=== PATIENT | female | born 1960 | race Caucasian/White ===

== ENCOUNTER 2018-10-25 09:36 | Inpatient (IN) ==
--- NOTE | 2018-10-08 09:39 | PAT Medication Instructions ---
Medication Instructions Date of Service October 08, 2018 Home Medications buspirone 10 mg PO QPM fluoxetine 40 mg PO QAM lisinopril 10 mg PO QAM meloxicam 15 mg PO QAM ASK your surgeon for instructions meloxicam 15 mg PO QAM DO NOT take the morning of surgery lisinopril 10 mg PO QAM Take morning of surgery With a small sip of water, OTHERWISE NOTHING TO EAT OR DRINK AFTER MIDNIGHT: fluoxetine 40 mg PO QAM Take evening before surgery buspirone 10 mg PO QPM Other Notes If you have any questions please call us at [phone] or [phone] or [phone] or [phone]
--- NOTE | 2018-10-08 11:15 | Anesthesiology Consultation ---
Date of Service October 08, 2018 Assessment & Plan (1) Encounter for pre-operative examination: Chart Review Chart Review: Acceptable Risk for Surgery and Patient seen in Pre Admission Testing Consults Requested none Teaching & Discussion Pre-Anesthesia Teaching/Discussion Notes: Instructed NPO after midnight before surgery, except medications with 15 cc of water. Medication instructions provided according to the PAT guidelines. History Surgery Operation Date: 10/25/18 11:25 Proposed Procedures p L4-L5 Decompression and Fusion - Armand Capone DO Height/Weight Height: 5 ft 3.5 in Weight: 111.5 kg Allergies Allergy/AdvReac Type Severity Reaction Status Date / Time No Known Allergies Allergy Verified 10/05/18 09:00 Medications Home Medications Medication Instructions Recorded Confirmed Last Taken buspirone 10 mg PO QPM 10/05/18 10/05/18 Unknown fluoxetine 40 mg PO QAM 10/05/18 10/05/18 Unknown lisinopril 10 mg PO QAM 10/05/18 10/05/18 Unknown meloxicam 15 mg PO QAM 10/05/18 10/05/18 Unknown Past Medical History Medical History Chronic back pain Depression Fatty liver Fecal urgency History of anesthesia reaction BRADYCARDIA Hyperlipidemia Hypertension Intermittent palpitations Osteoarthritis Snores Spinal stenosis Urinary urgency Past Surgical History Surgical History History of cardiac cath 2016 - [facility] - SOB, CP - NO STENTS/ANGIOPLASTY History of colonoscopy History of hysterectomy with oophorectomy History of sinus surgery History of tooth extraction Past Anesthesia History No Hx of Anesthesia Complications (see below, otherwise no issues) and No Family Hx of Anesthesia Complications H/O Bradycardia during anesthesia. History of PONV No Motion Sickness Screening History of Motion Sickness: Yes Social History Smoking Status: Never smoker Do You Dip or Chew Tobacco: No Hx Alcohol Use: No Hx Substance Use: No Exercise / Class Metabolic Activity II 4-5 Yardwork/Stairs/Walk up hill (Very limited due to back pain. Able to climb FOS. 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 Does get mild SOB by the top. ) Review of Systems Patient denies chest pain, shortness of breath, dyspnea on exertion, reflux, cough, wheezing +joint pain (back, knees) +heart palpitations (when having anxiety problems) Physical Exam Vital Signs BP: 159/85 P: 89 R: 16 T: 98.6 SPO2: 96% on RA Constitutional + obese ENMT Thyromental Distance: < 3.5 Finger Breadths (3) Mallampati Class: I Neck normal visual inspection and trachea midline Respiratory normal respiratory effort Auscultation: lungs clear to auscultation bilaterally Cardiovascular Rate/Rhythm: regular rate and regular rhythm Heart Sounds: no murmur Vessels: no carotid bruit Neurologic moves all extremities Psychiatric Orientation: alert and oriented x 3 Flat affect Testing Electrocardiogram Date: 08/27/18 Findings: + NSR @ (77) Possible left atrial enlargement Chest X-Ray Date: 10/08/18 Findings: + NAD Stress Test Date: 08/27/16 Type: nuclear (SESTAMISI) Resting EF: 75% Resting LV Function: normal Stress EKG was negative for myocardial ischemia at 99% of the MPHR. Moderate level of exercise achieved. Chest burning reproduced with exercise. Laboratory Results 10/08/18 10:54 10/08/18 10:54 Blood Type O Negative 10/08/18 10:54 Antibody Screen NEGATIVE 10/08/18 10:54 PT 9.9 Seconds (9.0-12.0) 10/08/18 10:54 INR 1.0 (0.9-1.1) 10/08/18 10:54 APTT 27.2 Seconds (21.0-31.0) 10/08/18 10:54 Urine Color Yellow 10/08/18 10:54 Urine Appearance Clear (Clear) 10/08/18 10:54 Urine pH 7.5 (4.5-7.5) 10/08/18 10:54 Ur Specific [place] 1.024 (1.000-1.030) 10/08/18 10:54 Urine Protein Negative (Negative) 10/08/18 10:54 Urine Glucose (UA) Negative (Negative) 10/08/18 10:54 Urine Ketones Negative (Negative) 10/08/18 10:54 Urine Nitrite Negative (Negative) 10/08/18 10:54 Ur Leukocyte Esterase Negative (Negative) 10/08/18 10:54 Urine WBC (Auto) 1-5 /hpf (0-5) 10/08/18 10:54 Urine RBC (Auto) 5-10 /hpf (0-4) H 10/08/18 10:54 U Hyaline Cast (Auto) 0 /lpf (0-5) 10/08/18 10:54 U Epithel Cells (Auto) 5-10 /lpf (0-5) H 10/08/18 10:54 Urine Bacteria (Auto) Negative (Negative) 10/08/18 10:54
[2018-10-08 11:55] LABS: Basophils # (auto) 0.03 K/uL (0-0.2); Basophils % (auto) 0.6 %; Eosinophils # (auto) 0.23 K/uL (0-0.5); Eosinophils % (auto) 4.4 %; Hematocrit (blood only) 42.3 % (37-47); Hemoglobin 13.8 g/dL (12.0-16.0); Immature Granulocytes # (auto) 0.01 K/uL (0.00-0.02); Immature Granulocytes % (auto) 0.2 %; Lymphocytes # (auto) 1.92 K/uL (1.2-3.4); Lymphocytes % (auto) 36.7 %; Mean Corpuscular Hgb Conc 32.6 g/dL (32-36); Mean Platelet Volume 9.7 fL (7.4-10.4); Monocytes % (auto) 7.6 %; Neutrophils # (auto) 2.64 K/uL (1.4-6.5); Neutrophils % (auto) 50.5 %; Platelet Count 269 K/uL (130-400); RDW Coefficient of Variation 14.6 % (11.5-14.5); RDW Standard Deviation 48.9 fL (36.4-46.3); Red Blood Count 4.65 M/uL (4.2-5.4); White Blood Count 5.23 K/uL (4.8-10.8)
--- NOTE | 2018-10-08 11:58 | XRay Report ---
XR chest Pre-admission PA/Lat CLINICAL HISTORY: pat preoperative COMPARISON STUDY: No previous studies for comparison. FINDINGS: The bones soft tissues and hemidiaphragms are normal. The cardiomediastinal silhouette is n ormal. The lungs are clear. The pulmonary vasculature is normal. IMPRESSION: Negative chest. The above report was generated using voice recognition software. It may contain grammatical, syntax or spelling errors. Electronically signed by: Delio Hubbard M.D. 10/08/2018 11:57 AM
[2018-10-08 12:03] LABS: Appearance Urine Clear (Clear); Bacteria Urine Automated Negative (Negative); Bilirubin Urine Negative (Negative); Blood Urine Trace (Negative); Cast Urine Automated 0 /lpf (0-5); Color Urine Yellow; Glucose Urine UA Negative (Negative); Ketones Urine Negative (Negative); Leukocyte Esterase Urine Negative (Negative); Nitrite Urine Negative (Negative); Protein Urine Negative (Negative); Specific Gravity Urine 1.024 (1.000-1.030); Urobilinogen Urine Negative (Negative); pH Urine 7.5 (4.5-7.5)
[2018-10-08 12:05] LABS: BUN Creatinine Ratio 18.8 (10-20); Calcium 8.7 mg/dl (8.5-10.1); Creatinine Clr Calc Pharmacy 96.5 ml/min; Est GFR (African American) 99.5; Est GFR (Non-African American) 85.9; Potassium 4.2 mmol/L (3.5-5.1)
[2018-10-08 12:16] LABS: Partial Thromboplastin Time 27.2 Seconds (21.0-31.0); Prothrombin Time 9.9 Seconds (9.0-12.0)
[~2018-10-25 09:36] MED LIST: ACETAMINOPHEN 500 MG TAB PO SCH; CEFAZOLIN 2000MG 2,000 MG/15 ML SYR IV SCH; CeleBREX 200 MG CAP PO SCH; DEXAMETHASONE SOD INJ 4 MG/ML VIAL ONE; GABAPENTIN 300 MG x 3 PO SCH; GLYCOPYRROLATE 0.2 MG/ML VIAL ONE; HYDROmorphone INJ 2 MG/ML SYR/VIAL ONE; LIDOCAINE HCL 2% 2 ML VIAL/AMP(20MG/ML) INFIL ONE; LR 15ML/HR IV SCH; MIDAZOLAM HCL 1 MG/ML 2ML VIAL ONE; NEOSTIGMINE METHYLSULFATE 1 MG/ML 10ML VIAL ONE; ONDANSETRON INJ 2 MG/ML 2 ML VIAL ONE; PROPOFOL IV EMULSION 10 MG/ML 20 ML VIAL IV ONE; ROCURONIUM BROMIDE 10 MG/ML 5 ML VIAL ONE; fentaNYL citrate 100 MCG/2 ML VIAL ONE
[2018-10-25] MEDS ORDERED: HYDROmorphone INJ 2 MG/ML SYR/VIAL ONE (11:33)
[2018-10-25] MEDS ORDERED: fentaNYL citrate 100 MCG/2 ML VIAL ONE ×4 (11:33→13:47)
[2018-10-25] MEDS ORDERED: HYDROmorphone INJ 1 MG/ML SYRINGE IV PRN (11:34)
[2018-10-25] MEDS ORDERED: ATROPINE SULFATE 0.1 MG/ML 10ML SYR IV PRN (11:34)
[2018-10-25] MEDS ORDERED: ONDANSETRON INJ 2 MG/ML 2 ML VIAL IV PRN ×2 (11:34→15:25)
--- NOTE | 2018-10-25 11:49 | History & Physical Bridge Note ---
Date of Service October 25, 2018 History & Physical Bridge Note I have examined the patient, reviewed the History & Physical and in the interval since the performance of the History & Physical I have noted the following changes of clinical significance: no changes noted
--- NOTE | 2018-10-25 11:53 | History & Physical Report ---
Date of Service October 25, 2018 Assessment & Plan (1) Neurogenic claudication due to lumbar spinal stenosis: L4-5 decompression and fusion Present on Admission?: Yes History of Present Illness Chief Complaint: Back and leg pain Primary Care Provider: Deandra Damon This is a 58-year-old female presents with chronic persistent back and leg pain failing extensive course of nonoperative care is here for surgical intervention. Allergies Allergy/AdvReac Type Severity Reaction Status Date / Time No Known Allergies Allergy Verified 10/25/18 09:48 Home Medications Home Medications Medication Instructions Recorded Confirmed Type buspirone 10 mg PO QPM 10/05/18 10/25/18 History fluoxetine 40 mg PO QAM 10/05/18 10/25/18 History lisinopril 10 mg PO QAM 10/05/18 10/25/18 History meloxicam 15 mg PO QAM 10/05/18 10/25/18 History Past Med/Surg History Medical History Chronic back pain Depression Fatty liver Fecal urgency History of anesthesia reaction BRADYCARDIA Hyperlipidemia Hypertension Intermittent palpitations Osteoarthritis Snores Spinal stenosis Urinary urgency Surgical History History of cardiac cath 2017 - [facility] - SOB, CP - NO STENTS/ANGIOPLASTY History of colonoscopy History of hysterectomy with oophorectomy History of sinus surgery History of tooth extraction Social History Preferred Language: Kittitian Communication Ability: Effective Temperer Required: No Beliefs That Will Affect Care: None Current Living Situation: Family Current Living Situation Comment: DTR AND GRANDCHILDREN LIVE WITH PT Other Information That Helps Us Care for You: No Feels Safe at Home: Yes Safety Concerns: Feels Safe At This Time Smoking Status: Never smoker Hx Alcohol Use: No Hx Substance Use: No Physical Exam Vital Signs (Past 24 Hours): Last Vital Signs Temp 36.7 C 10/25/18 10:02 Pulse 75 10/25/18 10:02 Resp 20 10/25/18 10:02 BP 153/71 H 10/25/18 10:02 Pulse Ox 96 10/25/18 10:02 Results & Data Medications Administered Acetaminophen (Tylenol) 1,000 mg PO PREOP ALEX Stop: 10/25/18 18:00 Last Admin: 10/25/18 10:19 Dose: 1,000 mg Documented by: [id number] Celecoxib (Celebrex) 200 mg PO PREOP ALEX Stop: 10/25/18 18:00 Last Admin: 10/25/18 10:19 Dose: 200 mg Documented by: [id number] Gabapentin (Neurontin) 900 mg PO PREOP ALEX Stop: 10/25/18 18:00 Last Admin: 10/25/18 10:18 Dose: 900 mg Documented by: [id number] Lactated Ringer's (Lr) 1,000 mls @ 15 mls/hr IV .Q24H ALEX Stop: 10/26/18 05:59 Last Admin: 10/25/18 10:10 Dose: 15 mls/hr Documented by: [id number]
[2018-10-25] MEDS ORDERED: BACITRACIN INJ 50,000 UNIT VIAL ONE (12:03)
[2018-10-25] MEDS ORDERED: BUPIVACAINE/EPINEPHRINE 0.5% MPF 1:200,000 30 ML VIAL ONE (12:03)
[2018-10-25] MEDS ORDERED: LARYING-O-JET KIT (LTA) ONE (12:52)
[2018-10-25] MEDS ORDERED: ePHEDrine sulfate 50 MG/ML SYR ONE (12:52)
[2018-10-25] MEDS ORDERED: LIDOCAINE HCL 2% 2 ML VIAL/AMP(20MG/ML) INFIL ONE (12:53)
[2018-10-25] MEDS ORDERED: GLYCOPYRROLATE 0.2 MG/ML VIAL ONE (12:53)
[2018-10-25] MEDS ORDERED: PROPOFOL IV EMULSION 10 MG/ML 20 ML VIAL IV ONE (12:53)
[2018-10-25] MEDS ORDERED: ONDANSETRON INJ 2 MG/ML 2 ML VIAL ONE (12:53)
[2018-10-25] MEDS ORDERED: DEXAMETHASONE SOD INJ 4 MG/ML VIAL ONE (12:53)
[2018-10-25] MEDS ORDERED: ePHEDrine sulfate 50 MG/ML AMP ONE (13:25)
[2018-10-25] MEDS ORDERED: FLOSEAL HEMOSTATIC MATRIX 10ML TOP ONE (13:29)
--- NOTE | 2018-10-25 13:50 | Fluoroscopy Report ---
FL lumbar spine 2-3V CLINICAL HISTORY: L4-L5 DECOMPRESSION AND FUSION POSSIBLE INTERBODY COMPARISON STUDY: None FLUOROSCOPY TIME: 14 seconds NUMBER OF FLUOROSCOPIC IMAGES: 3 FINDINGS: L4-L5 laminectomy and fusion IMPRESSION: L4-L5 laminectomy and fusion. Disc spacer placement. Alignment is anatomic. The above report was generated using voice recognition software. It may contain grammatical, syntax or spelling errors. Electronically signed by: Delio Hubbard M.D. 10/25/2018 1:48 PM
--- NOTE | 2018-10-25 13:53 | Operative Report ---
Post Operative Report Pre & Post Diagnosis Operation Date: 10/25/18 11:25 Pre-Op Diagnosis: Lumbar spinal stenosis with neurogenic claudication Post-Op Diagnosis: Lumbar spinal stenosis with neurogenic claudication Procedure Operation Date: 10/25/18 11:25 Actual Procedures 1. Lumbar decompression bilateral medial vasectomies foraminotomies L3-4 L4-5. #2 posterior spinal fusion L4-5 #3 please posterior instrumentation L4-5 per #4 interbody fusion L4-5 per #5 placement of titanium 12 x 22 mm cage at L4-5 per #6 placement of local autograft in the posterior lateral gutters. #7 placement Feese collagen sponge mass graft in the posterior lateral gutters and ostial amp in the interbody space. Surgeon Armand Capone, Plant Electrician None Estimated Blood Loss 125 Findings Consistent with Post-Op Diagnosis Specimens None Description of Procedure Patient was met with preoperatively case discussed all questions addressed. After informed consent obtained patient was taken to the operative suite underwent intubation and placed in a prone position on the Michael table on top of the Mor frame. All bony prominences well-padded eyes inspected to ensure no external pressure placed upon the. This point the lumbar spine was prepped and draped in a sterile fashion. Sharp dissection with the assistance of Bovie cautery was performed down to and exposing the lamina and transverse processes of L4 and L5 bilaterally. From a caudal cephalad fashion complete laminectomy of L4 partial laminectomy of L3 was performed including bilateral medial fac etectomies and foraminotomies addressing severe spinal stenosis. Pedicle screws were then placed in all 4 and L5 bilaterally with assistance of fluoroscopy the purposes clayton placed. Through a transforaminal approach on the right complete discectomy of L4-5 was performed in plate curetted to subcortical B bone and a 12 x 22 mm titanium cage filled with osteo-amp bone graft tapped into position. The rods then compressed locked into final position bilaterally. Transverse processes of L4 and L5 bur to subcortical B bone. Infuse collagen sponge master graft local autograft placed in the posterior lateral gutters. 15 round PATTI drain inserted. The incision was then closed with 1 Vicryl in the fascia 2-0 Vicryl subcutaneous layer and 4-0 Monocryl for final skin closure. Steri-Strip sterile dressings placed. Patient will continue to PACU stable disc. I attest to the content of the Intraoperative Record and any orders documented therein. Any exceptions are noted below.
[2018-10-25] MEDS ORDERED: ONDANSETRON 4 MG TAB PO PRN (15:25)
[2018-10-25] MEDS ORDERED: BISACODYL 10 MG SUPP PR PRN (15:25)
[2018-10-25] MEDS ORDERED: METOCLOPRAMIDE HCL INJ 5 MG/ML 2 ML VIAL IV PRN (15:25)
[2018-10-25] MEDS ORDERED: MAGNESIUM HYDROXIDE SUSP 30 ML UDC PO PRN (15:25)
[2018-10-25] MEDS ORDERED: HYDROmorphone INJ 0.5 MG/0.5 ML SYR IV PRN (15:25)
[2018-10-25] MEDS ORDERED: PROMETHAZINE HCL 12.5 MG in SODIUM CHLORIDE 0.9% 50 ML IV PRN (15:25)
[2018-10-25] MEDS ORDERED: ACETAMINOPHEN 1,000 MG/100 ML VIAL IV PRN (15:25)
[2018-10-25] MEDS ORDERED: DO NOT ADMINISTER FLU VACCINE PRN (15:25)
[2018-10-25] MEDS ORDERED: LORazepam 0.5 MG/1 ML VIAL IV PRN (15:25)
[2018-10-25] MEDS ORDERED: ACETAMINOPHEN 500 MG TAB PO PRN (15:25)
[2018-10-25] MEDS ORDERED: DO NOT ADMINISTER PNEUMOCOCCAL VACCINE PRN (15:25)
[2018-10-25] MEDS ORDERED: ALUMINUM/MAGNESIUM SUSP 30 ML UDC PO PRN (15:25)
[2018-10-25] MEDS ORDERED: FAMOTIDINE 20 MG TAB PO PRN (15:25)
[2018-10-25] MEDS ORDERED: SOD PHOSPHATE/SOD BIPHOSPHATE ENEMA 132 ML BTL PR PRN (15:25)
--- NOTE | 2018-10-25 15:25 | Anesthesiology Progress Note ---
Date of Service October 25, 2018 Anesthesia Post Procedure Vital Signs Vital Signs: Temp Pulse Pulse Resp BP BP Pulse Ox 10/25/18 15:10 57 L 24 129/78 93 10/25/18 15:05 57 L 15 121/75 96 10/25/18 15:00 54 L 18 135/84 94 10/25/18 14:55 57 L 18 132/86 91 10/25/18 14:50 56 L 19 129/90 92 10/25/18 14:45 58 L 19 130/79 94 10/25/18 14:40 57 L 15 137/84 95 10/25/18 14:35 57 L 17 134/85 94 10/25/18 14:30 60 20 94 10/25/18 14:25 61 18 146/88 H 97 10/25/18 14:20 36.5 C 63 60 19 146/88 H 146/88 H 98 10/25/18 14:15 63 19 143/88 H 99 10/25/18 14:10 63 17 155/87 H 97 10/25/18 14:05 66 16 158/92 H 99 10/25/18 14:02 68 15 98 10/25/18 14:00 71 16 151/91 H 98 10/25/18 13:59 36.3 C L 82 12 159/88 H 87 L 10/25/18 10:02 36.7 C 75 20 153/71 H 96 Notes Mental Status: alert / awake / arousable Patient Amnestic to Procedure: Yes Nausea / Vomiting: adequately controlled Pain: adequately controlled Airway Patency, RR, SpO2: stable & adequate BP & HR: stable & adequate Hydration State: stable & adequate Anesthetic Complications: no major complications apparent
[2018-10-25] MEDS: LACTATED RINGER'S 1,000 ML IV SCH ×2 (17:11→23:53)
[2018-10-25] MEDS: KETOROLAC TROMETHAMINE 15 MG/ML VIAL IV SCH ×2 (17:12→22:18)
[2018-10-25] MEDS: CLINDAMYCIN 600 MG in DEXTROSE 5% 50 ML IV SCH (19:55)
[2018-10-25] MEDS: DOCUSATE SODIUM/SENNA 50/8.6MG TAB PO SCH (21:18)
[2018-10-26] MEDS: CLINDAMYCIN 600 MG in DEXTROSE 5% 50 ML IV SCH (03:26)
[2018-10-26] MEDS: LORazepam 0.5 MG TAB PO PRN (03:26)
[2018-10-26] MEDS: KETOROLAC TROMETHAMINE 15 MG/ML VIAL IV SCH ×2 (03:27→09:41)
[2018-10-26] MEDS: POLYETHYLENE (MIRALAX) 17 GM PACK PO SCH ×4 (06:05→23:17)
[2018-10-26 06:15] LABS: Basophils # (auto) 0.04 K/uL (0-0.2); Basophils % (auto) 0.5 %; Eosinophils % (auto) 2.5 %; Hematocrit (blood only) 37.3 % (37-47); Hemoglobin 12.2 g/dL (12.0-16.0); Immature Granulocytes # (auto) 0.01 K/uL (0.00-0.02); Immature Granulocytes % (auto) 0.1 %; Lymphocytes # (auto) 1.89 K/uL (1.2-3.4); Lymphocytes % (auto) 23.8 %; Mean Corpuscular Hgb Conc 32.7 g/dL (32-36); Mean Corpuscular Volume 91.9 fL (80-100); Mean Platelet Volume 9.1 fL (7.4-10.4); Monocytes # (auto) 0.75 K/uL (0.11-0.59); Monocytes % (auto) 9.4 %; Neutrophils # (auto) 5.06 K/uL (1.4-6.5); Neutrophils % (auto) 63.7 %; Platelet Count 224 K/uL (130-400); RDW Coefficient of Variation 14.8 % (11.5-14.5); RDW Standard Deviation 49.9 fL (36.4-46.3); Red Blood Count 4.06 M/uL (4.2-5.4); White Blood Count 7.95 K/uL (4.8-10.8)
[2018-10-26 06:43] LABS: BUN Creatinine Ratio 14.8 (10-20); Calcium 7.9 mg/dl (8.5-10.1); Creatinine Clr Calc Pharmacy 78.4 ml/min; Est GFR (Non-African American) 67.3; Potassium 4.2 mmol/L (3.5-5.1)
[2018-10-26] MEDS: TRAMADOL HCL 50 MG TABLET PO PRN ×2 (07:32→14:37)
[2018-10-26] MEDS: LISINOPRIL 10 MG TAB PO SCH (08:39)
[2018-10-26] MEDS: FLUOXETINE HCL 20 MG CAP PO SCH (08:41)
--- NOTE | 2018-10-26 09:37 | Anesthesiology Progress Note ---
Date of Service October 26, 2018 Anesthesia Post Procedure Vital Signs Vital Signs: Temp Pulse Pulse Resp BP BP Pulse Ox 10/26/18 07:13 36.7 C 68 18 136/82 94 10/26/18 03:20 36.7 C 65 14 133/81 94 10/25/18 23:15 36.7 C 69 16 116/72 93 10/25/18 19:05 36.8 C 73 20 139/79 93 10/25/18 18:31 18 113/64 84 L 10/25/18 17:28 73 16 121/77 96 10/25/18 16:30 71 18 139/78 97 10/25/18 16:07 36.4 C L 64 16 133/80 95 10/25/18 15:25 36.5 C 57 L 20 127/82 94 10/25/18 15:10 57 L 24 129/78 93 10/25/18 15:05 57 L 15 121/75 96 10/25/18 15:00 54 L 18 135/84 94 10/25/18 14:55 57 L 18 132/86 91 10/25/18 14:50 56 L 19 129/90 92 10/25/18 14:45 58 L 19 130/79 94 10/25/18 14:40 57 L 15 137/84 95 10/25/18 14:35 57 L 17 134/85 94 10/25/18 14:30 60 20 94 10/25/18 14:25 61 18 146/88 H 97 10/25/18 14:20 36.5 C 63 60 19 146/88 H 146/88 H 98 10/25/18 14:15 63 19 143/88 H 99 10/25/18 14:10 63 17 155/87 H 97 10/25/18 14:05 66 16 158/92 H 99 10/25/18 14:02 68 15 98 10/25/18 14:00 71 16 151/91 H 98 10/25/18 13:59 36.3 C L 82 12 159/88 H 87 L 10/25/18 10:02 36.7 C 75 20 153/71 H 96 Pain Intensity Back: Pain Intensity: 5 Notes Mental Status: alert / awake / arousable and participated in evaluation Patient Amnestic to Procedure: Yes Nausea / Vomiting: see Notes below Pain: adequately controlled Airway Patency, RR, SpO2: stable & adequate BP & HR: stable & adequate Hydration State: stable & adequate Anesthetic Complications: no major complications apparent and Pt Satisfied with anesthetic care
[2018-10-26] MEDS ORDERED: COUGH DROP (SUGAR FREE) LOZ 24 LOZ/1 BOX BUCCAL ONE (11:08)
[2018-10-26] MEDS ORDERED: COUGH DROP (SUGAR FREE) LOZ 24 LOZ/1 BOX BUCCAL PRN (11:09)
--- NOTE | 2018-10-26 11:44 | Orthopedic Progress Note ---
Date of Service October 26, 2018 Assessment & Plan (1) Neurogenic claudication due to lumbar spinal stenosis: Patient is status post lumbar decompression fusion doing nicely. She is marked improvement of her leg function. We will assess her progress today and possible discharge home tomorrow. Present on Admission?: Yes Subjective Patient's back pain is controlled leg symptoms markedly improved. Physical Exam Vital Signs (Past 24 Hours): Last Vital Signs Temp 36.8 C 10/26/18 11:03 Pulse 85 10/26/18 11:03 Resp 18 10/26/18 11:03 BP 150/85 H 10/26/18 11:03 Pulse Ox 93 10/26/18 11:03 Physical Exam: On physical exam she is ambulate in halls has good strength testing is quite comfortable.
[2018-10-26] MEDS: OXYCODONE HCL IR 5 MG TAB (IMMEDIATE RELEASE) PO PRN ×2 (15:37→19:17)
[2018-10-26] MEDS: DOCUSATE SODIUM/SENNA 50/8.6MG TAB PO SCH (20:50)
[2018-10-27] MEDS: OXYCODONE HCL IR 5 MG TAB (IMMEDIATE RELEASE) PO PRN ×2 (04:12→10:27)
[2018-10-27] MEDS: POLYETHYLENE (MIRALAX) 17 GM PACK PO SCH ×4 (06:14→23:45)
--- NOTE | 2018-10-27 08:09 | Orthopedic Progress Note ---
Date of Service October 27, 2018 Assessment & Plan (1) Neurogenic claudication due to lumbar spinal stenosis: Today we will maintain physical therapy monitor PATTI output anticipate discharge home tomorrow. Present on Admission?: Yes Subjective Patient's back pain is much more significant today. Again her leg symptoms are markedly improved. Physical Exam Vital Signs (Past 24 Hours): Last Vital Signs Temp 36.8 C 10/27/18 07:27 Pulse 74 10/27/18 07:27 Resp 18 10/27/18 07:27 BP 150/87 H 10/27/18 07:27 Pulse Ox 93 10/27/18 07:27 Physical Exam: On exam she is obviously more uncomfortable today. She does however exhibit excellent strength testing lower extremities. She is been ambulating well.
[2018-10-27] MEDS: FLUOXETINE HCL 20 MG CAP PO SCH (08:21)
[2018-10-27] MEDS: LISINOPRIL 10 MG TAB PO SCH (08:21)
[2018-10-27] MEDS: DEXAMETHASONE SOD PHOSPHATE 8 MG in SYRINGE 0 ML IV SCH ×2 (08:21→20:04)
[2018-10-27] MEDS: TRAMADOL HCL 50 MG TABLET PO PRN (08:23)
[2018-10-27] MEDS: KETOROLAC 30 MG/ML VIAL IV PRN (08:24)
[2018-10-27] MEDS: DOCUSATE SODIUM/SENNA 50/8.6MG TAB PO SCH (20:04)
[2018-10-28] MEDS: LORazepam 0.5 MG TAB PO PRN (03:52)
[2018-10-28] MEDS: OXYCODONE HCL IR 5 MG TAB (IMMEDIATE RELEASE) PO PRN ×2 (06:23→11:00)
[2018-10-28] MEDS: POLYETHYLENE (MIRALAX) 17 GM PACK PO SCH (06:23)
[2018-10-28] MEDS: FLUOXETINE HCL 20 MG CAP PO SCH (08:28)
[2018-10-28] MEDS: DEXAMETHASONE SOD PHOSPHATE 8 MG in SYRINGE 0 ML IV SCH (08:28)
[2018-10-28] MEDS: LISINOPRIL 10 MG TAB PO SCH (08:28)
[2018-10-28] MEDS: KETOROLAC 30 MG/ML VIAL IV PRN (08:32)
--- NOTE | 2018-10-29 09:05 | Discharge Summary ---
Date of Service November 10, 2018 Admission HPI Per Admitting Provider This is a 58-year-old female presents with chronic persistent back and leg pain failing extensive course of nonoperative care is here for surgical intervention. Discharge Data Consultations 10/25/18 15:25 Consult Case Management - Discharge Planning Routine Procedures Performed Operation Date: 10/25/18 11:25 Actual Procedures p L4-L5 Decompression and Interbody Fusion(Not Applicable) - Armand Capone, DO
--- NOTE | 2018-10-29 12:27 | Coding Query ---
BMI To promote full compliance with coding requirements relating to patient care, physician participation is requested in all cases of computerized machine fabric cutter uncertainty. Please assist us with the question(s) below: Please place an X within the parenthesis (x). If other, please document: BMI 42.4 was documented in this record for this patient. If the BMI is significant, please check the box that provides a more specific associated diagnosis: ( ) Overweight/Obese ( ) Obesity (x ) Morbid obesity ( ) Obesity Hypoventilation Syndrome (OHS) ( ) Heathy weight, not significant ( ) Underweight/Thin ( ) Other, please specify Thank you Jaqui COSTA
--- NOTE | 2018-11-08 12:27 | Discharge Summary ---
Date of Service November 08, 2018 Admission HPI Per Admitting Provider This is a 58-year-old female presents with chronic persistent back and leg pain failing extensive course of nonoperative care is here for surgical intervention. Principal Diagnosis Lumbar spinal stenosis with neurogenic claudication Discharge Data Allergies Allergy/AdvReac Type Severity Reaction Status Date / Time No Known Allergies Allergy Verified 10/25/18 09:48 Consultations 10/25/18 15:25 Consult Case Management - Discharge Planning Routine Procedures Performed Operation Date: 10/25/18 11:25 Actual Procedures p L4-L5 Decompression and Interbody Fusion(Not Applicable) - Armand Capone DO Ordered Studies 10/25/18 11:25 FL fluoroscopy <1hr Routine FL lumbar spine 2-3V Routine Hospital Course (1) Neurogenic claudication due to lumbar spinal stenosis: Patient underwent lumbar decompression fusion tolerated the procedure well was taken to the orthopedic floor postoperative. She had a normal postoperative course trialing physical therapy PATTI drain decreasing appropriately and was subsequently discharged home. Discharge orders and instructions can be found in the chart for further review. Total Time Total Time Spent Total Time Spent (In Minutes): Not applicable Discharge Plan Discharge Items Patient Disposition: Home - Self-Care Reason For Visit: LUMBAR SPINAL STENOSIS W/NEUROGENIC CLAUDICATION Discharge Diagnosis: lumbar stenosis Discharge Goals: Improve function Activity: Per 'Additional Instructions' section Non-emergency contact: Primary Care Provider Call non-emergency contact if: you have any medication questions Follow-up/Referrals: Deandra Damon D.O. [Primary Care Provider] - Diet: Regular Addtl Provider Instructions: ACTIVITY RECOMMENDATIONS: SELF CARE INSTRUCTIONS AFTER THORACIC/LUMBAR FUSIONS 1. You may walk to your tolerance. It is good exercise for your legs and back. Expect some back and intermittent leg aches and pains. 2. You may perform "counter-top" level activities (make a sandwich, sangeeta with a project, etc.). 3. No bending or lifting of more than 10 pounds or back twisting of any nature (roll like a log when turning in bed). 4. You may ride in a car for 20-30 minutes at a time. No driving until after your first visit with your doctor. 5. Frequent changes of position and restricting sitting to 30 minutes at a time will help limit the amount of back spasms and stiffness you may experience. 6. You may discontinue the use of ambulatory aids (cane, crutches, etc.) once your strength and confidence allow. 7. You may psychologist counseling the shower and let water strike your incision when you arrive home at least once daily. Do not take a tub bath, sit in a hot tub or go into a swimming pool until after your first recheck in the office. SPECIAL CARE INSTRUCTIONS: VERY IMPORTANT TO READ AND REVIEW A. Your surgical incision has been closed with a cosmetic suture under the skin that will dissolve in about 6 weeks. In 14 days, you can use a pair of clean scissors and cut the suture that is left outside of the skin at the ends of your incision. 1. The small skin tapes can be removed 7 days after surgery if they have not fallen off by that point. 2. You may keep the wound open to air as much as possible to promote healing after post-op day number 5 unless told otherwise by your doctor. 3. If you think the wound looks like it is becoming infected (redness or worsening drainage) and/or you are experiencing fever, chill or worsening back pain and muscle spasms, contact the office so that we may evaluate you as soon as possible. B. Complications are uncommon, but please contact us if you have any signs or symptoms of: 1. wound infection (fever higher than 102.5 degrees F, redness, separation of wound, drainage, or increasing pain from the incision) 2. blood clots in legs (pain, swelling, redness and warmth in legs) 3. urinary tract infection (fever higher than 102.5 degrees F, burning upon urination or increased frequency of urination) 4. nerve problems (inability to walk on your toes or heels, numbness, loss of bowel or bladder control) 5. any other symptoms that concern you C. Please call the office at if you have any concerns or questions about your operation or recovery. D. No smoking! Smoking drastically decreases the chance of a solid fusion. E. Do not take any anti-inflammatory medications (Indocin, Advil, Motrin, Aspirin, Naprosyn, etc.) as these may inhibit the chance of a solid fusion. Tylenol is okay to take for pain. MANAGING PAIN AFTER SPINAL SURGERY 1. Narcotic medication is intended for short-term use and will be provided for surgical pain. Surgical pain usually lasts for a period of 4-6 weeks. Narcotic medication includes Percocet, Vicodin, Darvocet, Tylenol #3 or Lortab. 2. Longer-term pain is more appropriately treated with non-narcotic medication such as Tylenol ES. 3. Muscle spasm is not appropriately treated with narcotics. Muscle relaxers such as Soma, Flexeril or Skelaxin can be used along with Tylenol ES. 4. Remember that we all live with some "aches and pains". This is not unusual or uncommon after an injury or as we get older. a. Back pain is expected and may include muscle spasms for 4 to 6 weeks after surgery. The pain should gradually improve. If the pain worsens for no apparent reason, please contact the office. b. Intermittent leg pain may also be experienced and should not be concerned about unless it worsens for no apparent reason. If so, please contact the office. 5. We will provide appropriate medication within the normal guidelines of their prescribed use. We will also be very cautious and aware of potential abuse and extended duration of patients' medication needs. a. Pain medications are for your comfort and to assist with sleep and rest so that the tissue can heal. They are not provided in order to return to normal activity and should not be used through the day. To do so or worsening pain at night can result from ongoing tissue damage and development of tolerance to the prescribed medicine. 6. Please allow 2-3 days to process refills. Prescriptions will not be mailed but must be picked up at the office. FOLLOW UP VISIT: Keep your scheduled follow-up appointment. Any questions, please call the office at . Prescriptions: New tramadol 50 mg Tablet 50 mg PO Q4H PRN (Reason: Pain, Moderate) Qty: 30 RF: 0 oxycodone 5 mg Tablet 5 mg PO Q4H PRN (Reason: Pain, Severe) Qty: 30 RF: 0 Continued fluoxetine 40 mg Capsule 40 mg PO QAM RF: 0 meloxicam 15 mg Tablet 15 mg PO QAM RF: 0 buspirone 10 mg Tablet 10 mg PO QPM RF: 0 lisinopril 10 mg Tablet 10 mg PO QAM RF: 0 Stand-Alone Forms: [facility], Opioid Pain Management Discharge Orders: Discharge Order (Routine); Ordered 10/27/18 Ordered By: Armand Capone Admission Data Admit Date/Time: 10/25/18 13:58 Attending Provider: Armand Capone Admit Provider: Armand Capone Primary Care Provider: Deandra Damon Service: Surgical Services Other Interventions: Discharge Summary Assessment (RN) Last Done: 10/28/18 08:17 DC Date/Time DO NOT enter until pt leaves facility: 10/28/18 11:59
== END 2018-10-28 11:59 | disposition home or self-care (01) | DRG 454 ==
LOC: ASU 09:36 → 3E 13:58